=== PATIENT | male | born 1965 | race Caucasian/White ===

== ENCOUNTER 2019-03-16 10:58 | Day surgery (SDC) | payer BC ==
[2019-03-08 16:12] VITALS: BMI 26.4
[2019-03-16] MEDS ORDERED: PROPOFOL 20 ML ONE ×2 (13:37)
[2019-03-16 15:13] VITALS: BP 114/78; PULSE 64; TEMP 97.9
--- NOTE | 2019-03-18 16:00 | PATH ---
Surgical Pathology Report Patient Name: VENKAT BUNDY [facility]. Rec. #: [id number] /Age/Gender: 1965 (Age: 53) / M Account: [id number] Location: [facility] Taken: 03/16/2019 Received: 03/16/2019 Reported: 03/18/2019 Physicians: Aracelis Nazario M.D. Specimen(s) Received POLYP PROXIMAL TRANSVERSE COLON Clinical History Screening Postoperative diagnosis: Colon polyp, hemorrhoids Final Diagnosis PROXIMAL TRANSVERSE COLON, POLYP, BIOPSY: TUBULAR ADENOMA. Electronically Signed Aracelis Benavidez M.D. Gross Description Received in formalin, labeled "biopsy polyp proximal transverse" is a simmons, irregular portion of soft tissue measuring 0.3 cm. in greatest dimension. The specimen is submitted in toto in one cassette. 03/17/2019 [facility]/17/2019
== END 2019-03-16 15:13 | disposition home or self-care (01) ==
LOC: FASU-ENDO 10:58
PROVIDERS: ATTEND Internal Medicine Gastroenterology
PROC: 0DBL8ZX Excision of Transverse Colon, Via Natural or Artificial Opening Endoscopic, Diagnostic (ICD-10-PCS; principal; 2019-03-16 13:52)
DX: Z12.11 Encounter for screening for malignant neoplasm of colon (principal); D12.3 Benign neoplasm of transverse colon; K64.1 Second degree hemorrhoids
CPT/HCPCS: 88305-TC